=== PATIENT | female | born 1975 | race Caucasian/White ===

== ENCOUNTER 2017-05-11 17:10 | Emergency (ER) | payer OTHER ==
[2017-05-11 17:38] VITALS: BP 158/80
[2017-05-11] MEDS ORDERED: FLUORESCEIN OPHTH TEST STRIP. ONE (17:45)
[2017-05-11] MEDS ORDERED: TETRACAINE 0.5% OPHTH SOLUTION 4ML BOTTLE. ONE (17:45)
--- NOTE | 2017-05-11 17:48 | PHYS DOC ---
Past Medical History Past Medical History: No Pertinent History, Anxiety Past Surgical History: Tubal ligation Alcohol Use: None Drug Use: None Adult General Chief Complaint Chief Complaint: EYE PROBLEMS HPI HPI Patient is a 41 year old female presents to the emergency department stating that she felt as though something is in her right eye. She states that she feels like it is scratching. She denies any visual changes she denies any drainage or discharge from the eye. She is unsure when her last tetanus immunization occurred. Patient denies any use of contact lenses. She states that she did try to irrigate her eye with some Visine however the eye became red swollen and increasingly irritated. Review of Systems Review of Systems Constitutional: Denies fever or chills [] Eyes: Denies change in visual acuity, complaint of right eye redness and feeling is something is in it. HENT: Denies nasal congestion or sore throat [] Respiratory: Denies cough or shortness of breath [] Cardiovascular: No additional information not addressed in HPI [] GI: Denies abdominal pain, nausea, vomiting, bloody stools or diarrhea [] : Denies dysuria or hematuria [] Musculoskeletal: Denies back pain or joint pain [] Integument: Denies rash or skin lesions [] Neurologic: Denies headache, focal weakness or sensory changes [] Endocrine: Denies polyuria or polydipsia [] Current Medications Current Medications Current Medications Medications (Trade) Dose Ordered Sig/[facility] Start Time Stop Time Status Last Admin Dose Admin Fluorescein Sodium (Ful-Jade) 1 strip 1X ONCE 05/11/17 18:00 05/11/17 18:01 DC Tetracaine HCl (Tetracaine) 1 drop 1X ONCE 05/11/17 18:00 05/11/17 18:01 DC Allergies Allergies Allergies Coded Allergies Type Severity Reaction Last Updated Verified No Known Drug Allergies 12/01/13 No Physical Exam Physical Exam Constitutional: Well developed, well nourished, no acute distress, non-toxic appearance. [] HENT: Normocephalic, atraumatic, bilateral external ears normal, oropharynx moist, no oral exudates, nose normal. [] Eyes: PERRLA, EOMI, conjunctiva normal, no discharge. [] Neck: Normal range of motion, no tenderness, supple, no stridor. [] Cardiovascular:Heart rate regular rhythm, no murmur [] Lungs & Thorax: Bilateral breath sounds clear to auscultation [] Skin: Warm, dry, no erythema, no rash. [] Back: No tenderness Extremities: No tenderness, no cyanosis, no clubbing, ROM intact, no edema. [] Neurologic: Alert and oriented X 3, normal motor function, normal sensory function, no focal deficits noted. [] Psychologic: Affect normal, judgement normal, mood normal. [] Current Patient Data Vital Signs Vital Signs Date Time Temp Pulse Resp B/P (MAP) Pulse Ox O2 Delivery O2 Flow Rate FiO2 05/11/17 17:38 98.4 82 20 96 Room Air 98.4 EKG EKG [] Radiology/Procedures Radiology/Procedures [] Course & Med Decision Making Course & Med Decision Making Pertinent Labs and Imaging studies reviewed. (See chart for details) Tetracaine was placed into the right eye, no foreign body noted in the eye upper lid was inverted with no foreign body noted. Fluorescein was also used with no uptake noted. Eye will be irrigated with saline. With recommendations to follow-up with an [employer] system administrator tomorrow. Signs and symptoms to return back to emergency department as been provided. Patient agrees with discharge instructions, treatment regimens and follow-up recommendations. All questions and concerns has been answered at patient's bedside. Patient will be placed on ofloxacin drops for the next 7 days. [] Dragon Disclaimer Dragon Disclaimer This electronic medical record was generated, in whole or in part, using a voice recognition dictation system. Departure Departure Impression: Primary Impression: Acute right eye pain Disposition: HOME, SELF-CARE Condition: STABLE Referrals: GLADYS RUDOLPH MD (PCP) Moira TAMAYO MD Patient Instructions: Eye Injury-Brief Additional Instructions: Activity as tolerated. Tylenol or ibuprofen for pain and discomfort. Cool packs to the right eye. Follow-up with ophthalmology tomorrow. Return back to emergency department for signs and symptoms of become worse. Scripts Ofloxacin (OCUFLOX) 5 Ml Drops 1-2 DROP OD BID, #[address] in the right eye for the next 7 days Prov: KESHAV SANCHEZ APRN 05/11/17 KESHVA SANCHEZ APRN May 11, 2017 17:48
[2017-05-11] MEDS ORDERED: FLUORESCEIN OPHTH TEST STRIP. OD ONE (18:00)
[2017-05-11] MEDS ORDERED: TETRACAINE 0.5% OPHTH SOLUTION 4ML BOTTLE. OD ONE (18:00)
[2017-05-11] MEDS ORDERED: OFLO5DRO OD (18:08)
== END 2017-05-11 18:13 | disposition home or self-care (01) ==
LOC: ER 17:10
DX: H57.11 Ocular pain, right eye (principal)
CPT/HCPCS: 99283